=== PATIENT | female | born 1980 | race Caucasian/White ===

== ENCOUNTER 2023-01-14 13:08 | Emergency (ER) | payer SELFPAY ==
[~2023-01-14] VITALS: Ht 152.4 cm; Wt 68.0 kg
--- NOTE | 2023-01-14 13:22 | NUR ---
TO ER BED 7
[2023-01-14 13:28] VITALS: BP 171/85
--- NOTE | 2023-01-14 13:31 | NUR ---
ASSUMED PATIENT CARE, NURSING ASSESSMENT COMPLETED.
[2023-01-14 13:55] LABS: BASOPHILS # (AUTO) 0.1 K/uL (0.00-0.22); BASOPHILS % (AUTO) 0.8 % (0.0-2.0); EOSINOPHILS # (AUTO) 0.2 K/uL (0-0.4); EOSINOPHILS % (AUTO) 1.9 % (0.0-4.0); HEMATOCRIT 36.4 % (36-48); LYMPHOCYTES # (AUTO) 2.2 K/uL (2.5-16.5); LYMPHOCYTES % (AUTO) 26.9 % (20.5-51.1); MEAN CORPUSCULAR HEMOGLOBIN 27 pg (27-31); MEAN CORPUSCULAR HGB CONC 33 g/dL (33-37); MEAN CORPUSCULAR VOLUME 82.6 fL (80-94); MONOCYTES # (AUTO) 0.5 K/uL (0.8-1.0); MONOCYTES % (AUTO) 5.7 % (1.7-9.3); NEUTROPHILS # (AUTO) 5.3 K/uL (1.8-7.7); NEUTROPHILS % (AUTO) 64.7 % (42.2-75.2); PLATELET COUNT (AUTO) 205 K/uL (140-450); RED BLOOD CELL COUNT(AUTO) 4.41 MIL/uL (4.20-5.40); WHITE BLOOD COUNT (AUTO) 8.3 K/uL (4.8-10.8)
[2023-01-14 14:08] LABS: ALBUMIN 3.4 g/dL (3.4-5.0); ANION GAP 19.1 (8-16); CARBON DIOXIDE 22.8 mmol/L (21-32); POTASSIUM 3.9 mmol/L (3.5-5.1); TOTAL BILIRUBIN 0.4 mg/dL (0.0-1.0)
[2023-01-14] MEDS ORDERED: NACL 0.9% 2,000 ML IV ONE (14:30)
[2023-01-14] MEDS ORDERED: INSULIN REGULAR, HUMAN 100 UNIT/ML VIAL SUBQ ONE (14:30)
[2023-01-14 14:48] LABS: BARBITURATE, URINE NEGATIVE ng/ml (NEG <=200)
[2023-01-14 14:49] LABS: BENZODIAZEPINE, URINE NEGATIVE ng/mL (NEG <=200); CANNABINOID, URINE NEGATIVE ng/mL (NEG <=50); COCAINE, URINE NEGATIVE ng/mL (NEG <=300); OPIATE, URINE NEGATIVE ng/mL (NEG <=2000); PHENCYCLIDINE SCREEN,URINE NEGATIVE ng/mL (NEG <=25)
[2023-01-14 17:07] VITALS: BP 145/90
--- NOTE | 2023-01-14 17:08 | NUR ---
Patient discharged with v/s stable. Written and verbal after care instructions given and explained. Patient verbalized understanding. Ambulatory with steady gait. All questions addressed prior to discharge. Advised to follow up with PMD.
[2023-01-14 17:10] LABS: APPEARANCE,URINE CLEAR (CLEAR); BILIRUBIN,URINE NEGATIVE (NEGATIVE); BLOOD, URINE NEGATIVE (NEGATIVE); COLOR,URINE YELLOW (YELLOW); LEUKOCYTE ESTERASE ,URINE NEGATIVE (NEGATIVE); NITRITE, URINE NEGATIVE (NEGATIVE); UGLUCOSE 3+ (NEGATIVE)
== END 2023-01-14 17:07 | disposition home or self-care (01) ==
LOC: MED 13:08
DX: E11.65 Type 2 diabetes mellitus with hyperglycemia (principal); I10 Essential (primary) hypertension; Z72.89 Other problems related to lifestyle; Z79.4 Long term (current) use of insulin; Z79.899 Other long term (current) drug therapy
CPT/HCPCS: 36415; 71045; 80053; 80305; 81003; 81025; 85025; 93005; 96360; 96361; 96372; 99285; J1815; J7030; Q0092

== ENCOUNTER 2023-08-21 01:05 | Emergency (ER) | payer MEDICAID ==
[~2023-08-21] VITALS: Ht 152.4 cm; Wt 70.3 kg
[2023-08-21 01:10] VITALS: BP 190/86; PULSE 68; RESP 17; TEMP 97.8; O2SAT 100
[2023-08-21 01:45] LABS: APPEARANCE,URINE CLOUDY (CLEAR); BILIRUBIN,URINE NEGATIVE (NEGATIVE); BLOOD, URINE 3+ (NEGATIVE); COLOR,URINE RED (YELLOW); LEUKOCYTE ESTERASE ,URINE TRACE (NEGATIVE); NITRITE, URINE POSITIVE (NEGATIVE); PROTEIN,URINE TRACE (NEGATIVE); UGLUCOSE NEGATIVE (NEGATIVE); UROBILINOGEN,URINE 0.2 EU/dL (0.2 - 1)
[2023-08-21 01:53] LABS: BACTERIA,URINE 10-30 (MOD) /HPF (None Seen); MUCUS,URINE 1+ /LPF (None Seen); RBC,URINE TOO NUMEROUS TO COUN /HPF (0-5); SQUAMOUS EPITHELIAL CELL,UR 0-3 (FEW) /LPF (0-3 (FEW))
[2023-08-21] MEDS ORDERED: cefTRIAXone 1,000 MG in LIDOCAINE MPF 1% 2.1 ML IM ONE (03:40)
[2023-08-21] MEDS ORDERED: PHENAZOPYRIDINE 100 MG TAB PO ONE (03:40)
[2023-08-21] MEDS ORDERED: cefTRIAXone 1,000 MG VIAL ONE (03:42)
[2023-08-21] MEDS ORDERED: LIDOCAINE MPF 1% 5 ML ONE (03:43)
[2023-08-21] MEDS ORDERED: CEPH-588 PO (03:57)
[2023-08-21] MEDS ORDERED: NAPR-54 PO (03:57)
[2023-08-21] MEDS ORDERED: PYR100 PO (03:57)
[2023-08-21 04:00] VITALS: BP 190/86; PULSE 68; RESP 17; TEMP 97.8; O2SAT 100
== END 2023-08-21 04:00 | disposition home or self-care (01) ==
LOC: MED 01:05
DX: N39.0 Urinary tract infection, site not specified (principal); D64.9 Anemia, unspecified; Z79.899 Other long term (current) drug therapy
CPT/HCPCS: 81001; 81025; 87086; 96372; 99283; J0696; J2001